=== PATIENT | female | born 1945 | race Caucasian/White ===

== ENCOUNTER → 2020-03-27 | Outpatient (CLI) | payer OTHER, MEDICARE ==
[~2020-03-27] MED LIST: CARVEDILOL3.125 MG PO; CENTRUM ADULTS1 EACH PO; CHILDREN'S ASPI81 M1 PO; EFFIENT10 MG PO; HYDROCHLOROTHIA25 M2 PO; KEFLEX500 M1 PO; LIPITOR20 MG PO; NEURONTIN 300M300 M2 PO; NITROGLYCERIN0.4 MG SUBLING; NITROSTAT0.4 M1 SUBLING; NORCO 5-325 TA1 EACH PO; NOVOLOG FL100 UNIT/M; OMEPRAZOLE40 MG PO; TOPROL XL25 MG PO; UNICOMPLEX M TA1 TA1 PO; VASOTEC10 MG PO; VASOTEC5 MG PO
[2020-03-27 11:10] LABS: HEMATOCRIT 38.2 % (37.0-47.0); HEMOGLOBIN 12.6 gm/dL (12.0-15.0); MCH 27.5 pg (26.0-34.0); MCHC 33.1 g/dL (28.0-37.0); MCV 82.9 fL (80.0-100.0); RBC 4.61 mil/uL (4.20-5.00); RDW 14.9 % (10.5-14.5); URINE BILIRUBIN NEGATIVE (Negative); URINE BLOOD NEGATIVE (Negative); URINE CLARITY CLEAR; URINE COLOR YELLOW; URINE GLUCOSE-RANDOM* NEGATIVE (Negative); URINE KETONES NEGATIVE (Negative); URINE NITRITE-REFLEX NEGATIVE (Negative); URINE PROTEIN (DIPSTICK) NEGATIVE (Negative); URINE UROBILINOGEN 0.2 E.U./dl (0.2-1.0); WBC 6.1 thou/uL (4.0-11.0)
[2020-03-27 11:11] LABS: URINE LEUKOCYTES-REFLEX 1+ (Negative)
[2020-03-27 11:19] LABS: APTT 26.6 Seconds (24.5-32.8); PROTIME 10.2 Seconds (9.3-11.4)
[2020-03-27 11:21] LABS: BACTERIA-REFLEX None Seen /HPF (None Seen); CASTS None Seen /LPF (None Seen); CRYSTALS None Seen /LPF (None Seen); SQUAMOUS None Seen /LPF (0-3); URINE RBC 0-2 Rare /HPF (0-2); URINE WBC-REFLEX 0-5 Rare /HPF (0-5)
[2020-03-27 11:25] LABS: ALBUMIN 4.1 g/dL (3.4-5.0); CALCIUM 9.4 mg/dL (8.5-10.1); CREATININE 0.8 mg/dL (0.6-1.0); POTASSIUM 4.4 mmol/L (3.5-5.1); TOTAL BILIRUBIN 0.3 mg/dL (0.2-1.0)
--- NOTE | 2020-03-27 12:42 | EKG ---
[place] [address] [facility] [place] [address] ELECTROCARDIOGRAM REPORT Name: JAIME CHAPA Room #: [facility].#: [id number] Admission: Attend Phys: Navdeep Becerra MD Discharge: Date of : 49 Report #: [id number] [facility] Test Date: 2020-03-27 Test Time: 11:03:23 Pat Name: JAIME CHAPA Department: Room: Gender: F Human Resources Administrator: MAX : 1945 Requested By: Navdeep Becerra Order Number: [id number] MD: Phillip Alfredo Measurements Intervals [place] Rate: 52 P: 9 AR: 169 QRS: 2 QRSD: 97 T: 10 QT: 526 QTc: 490 Interpretive Statements Sinus rhythm Abnormal R-wave progression, early transition Borderline prolonged QT interval No previous ECG available for comparison Electronically Signed On 03-27-2020 12:42:27 HUMIDIFIER ATTENDANT by Phillip Alfredo [email or web address] <ELECTRONICALLY SIGNED> By: Phillip Alfredo MD, [facility] 03/27/20 1242 1103 1103 Phillip Alfredo MD, FACC /EPI
== END ==
LOC: LAB 10:41
PROVIDERS: ATTEND Surgery Vascular Surgery
DX: Z01.812 Encounter for preprocedural laboratory examination (principal); Z20.822 Contact with and (suspected) exposure to COVID-19

== ENCOUNTER 2020-04-02 06:18 | Inpatient (IN) | payer OTHER, MEDICARE ==
[~2020-04-02] VITALS: Ht 160 cm; Wt 66.2 kg
[2020-04-02 07:18] VITALS: BP 154/81
--- NOTE | 2020-04-02 15:16 | O ---
[facility] [address] OPERATIVE REPORT Name: JAIME CHAPA Room #: 150-1 ADM IN M.R.#: [id number] Admission: 04/02/20 Attend Phys: Navdeep Becerra MD Discharge: Date of : 49 Report #: [id number] THIS REPORT FOR: cc: ROYAL 11,GOGO KAISER 11,GOGO Rivera,Navdeep Escudero MD ~ DATE OF SERVICE: 04/02/2020 PREOPERATIVE DIAGNOSIS: Left carotid artery stenosis. POSTOPERATIVE DIAGNOSIS: Left carotid artery stenosis. OPERATION: Left carotid endarterectomy with patch closure. SURGEON: Navdeep Becerra M.D. HOUSEHOLD CHORES: Kia Bond ANESTHESIA: General. INDICATIONS: The patient is a 74-year-old seen for [facility]. The patient has a 90% left internal carotid stenosis. This has been asymptomatic. FINDINGS AND TECHNIQUE: After general anesthesia was established, an oblique left neck incision was made. Common facial vein was divided. Common internal and external carotid artery and the superior thyroid artery were identified and controlled, 10,000 units of heparin were given. Continuous electroencephalographic monitoring was performed during the operation when the carotid vessels were occluded, no EEG changes were noted. The carotid arteriotomy was made. The endarterectomy was performed without creating a distal flap. Neointima was inspected and all loose debris was removed. Tacking sutures were placed at the transition zone. When the endarterectomy was deemed satisfactory, the arteriotomy was closed with running Prolene and a thin walled pericardial patch. Prior to finishing the closure, the carotid vessels were backbled and the artery was flushed with heparinized saline. Flow was established first through the external, then the internal carotid. Protamine was given to reverse the heparin. The patient had been on dual antiplatelet therapy prior to surgery, however, and there was a prolonged period of bleeding from tiny needle holes that required topical hemostatic technique. An additional unit of platelets was given. [facility] [address] [place] [address] OPERATIVE REPORT Name: JAIME CHAPA Judy Room #: 150-1 [facility].#: [id number] Admission: 04/02/20 Attend Phys: Navdeep Becerra MD Discharge: Date of : 49 Report #: [id number] When the bleeding was finally felt to be satisfactory, the wound was irrigated with antibiotic solution and then a Manas drain was brought out through the bottom of the incision and the wound was closed in layers. The patient was taken to the recovery area in good condition having tolerated the procedure well. All counts reported as correct. <ELECTRONICALLY SIGNED> By: Navdeep Becerra MD 04/02/20 1516 1359 1429 Navdeep Becerra MD /nt
[2020-04-02 15:30] VITALS: BP 110/43
--- NOTE | 2020-04-02 17:29 | NUR ---
1530-RECEIVED PT INTO 248 VIA BED W PACU CREW.PT EXTREMELY SLEEPY-GIVEN PHENERGAN PRIOR TO LEAVING PACU.CARDENE @ 10MG/HR.--VW
--- NOTE | 2020-04-03 06:06 | NUR ---
ASSUMED PT CARE AT 1900. VSS. PT [id number]. PT WAS N/V, ZOFRAN GIVEN N/V RESOLVED. PAIN MANAGED PER MAR ONCE THIS SHIFT. CARDENE TITRATED DOWN TO 2.5 FROM 10MG/HR. PT IS STABLE, NO COMPLAINTS THIS AM. WOULD LIKE TO HAVE BREAKFAST. WILL CONTINUE TO MONITOR
[2020-04-03 06:11] LABS: HEMATOCRIT 27.7 % (37.0-47.0); HEMOGLOBIN 9.3 gm/dL (12.0-15.0); MCH 27.8 pg (26.0-34.0); MCHC 33.5 g/dL (28.0-37.0); MCV 82.9 fL (80.0-100.0); RBC 3.33 mil/uL (4.20-5.00); RDW 15.5 % (10.5-14.5); WBC 14.2 thou/uL (4.0-11.0)
[2020-04-03 06:21] LABS: CALCIUM 8.1 mg/dL (8.5-10.1); CREATININE 0.8 mg/dL (0.6-1.0)
--- NOTE | 2020-04-03 07:21 | NUR ---
ASSUMMED CARE OF THIS PATIENT FROM THE NIGHT NURSE, ARJUN SAM. DR TEMPLETON BY.
[2020-04-03 08:05] VITALS: BP 123/50
[2020-04-03 09:00] VITALS: BP 125/54
[2020-04-03 10:00] VITALS: BP 127/54
[2020-04-03 12:29] VITALS: BP 121/45
[2020-04-03 16:23] VITALS: BP 134/58
--- NOTE | 2020-04-03 16:28 | NUR ---
74-year-old male admitted for Left carotid endarterectomy with patch closure. Patient currently lives at home with spouse Andrew Vasquez at [phone]. Spoke with spouse and introduced role of CM. No anticipated needs as he too has been in touch with the patient and her updates as well. Patient had been Independent with ADL's and per PT has noted no difficulty with ambulation and has a steady gait and plan up ad federico. Anticipated limited needs at discharged now planned per attending for 04-04-. CM will follow for discharge needs.
[2020-04-03 20:00] VITALS: BP 139/52
--- NOTE | 2020-04-03 20:00 | NUR ---
PATIENT IS PROGRESSING TOWARDS OUTCOME GOALS EVIDENT BY, VOIDING WITHOUT DIFFICULTY NOW THAT DANIELLE WAS DC'D. AMBULATING IN THE HALLS AND UP IN THE CHAIR. DENIES PAIN. AWAITING BED ON CCU.
[2020-04-04] VITALS: BP 142/50
[2020-04-04 00:05] LABS: GLYCOHEMOGLOBIN (HGB A1C) 7.4 % (4.8-5.6)
[2020-04-04 00:15] VITALS: BP 142/50
[2020-04-04 04:00] VITALS: BP 133/52
--- NOTE | 2020-04-04 06:30 | NUR ---
Pt progressing toward discharge goals. Voiding without difficulty since catheter removal. Taking po without nausea. Up with stand-by assist only, gait steady. Left neck drsg drainage has not increased, drsg intact, dry. Blood pressure and blood sugars within parameters.
[2020-04-04 07:50] VITALS: BP 133/56
[2020-04-04 08:23] VITALS: BP 133/56
--- NOTE | 2020-04-04 08:55 | NUR ---
0730-YP TO TOILET THEN CHAIR.PT VERY READY TO GO HOME. IN EXCELLENT SPIRITS. AUGUSTIN JACKSON PA, IN.--VW
[2020-04-04 10:35] VITALS: BP 130/56
--- NOTE | 2020-04-05 16:06 | PATH ---
[facility] [address] [place] [address] PATHOLOGY RPT PROCEDURE Name: LIZZ VASQUEZ Judy Room #: 248-P DIS IN M.R.#: [id number] Admission: 04/02/20 Date of : 49 Discharge: 04/04/20 Report #: [id number] Path Case #: [id number] [facility] Accession Number: [id number] . 01 Material submitted: . carotid body - LEFT CAROTID ARTERY PLAQUE. Modifiers: left . 02 Diagnosis: Left carotid artery, endarterectomy: - Calcified atherosclerotic plaque. (EDD:tru; 04/04/2020) MBR 04/04/2020 1635 Local . 02 Electronically signed: . Tom Fong MD, Pathologist NPI- [id number] . 01 Gross description: . The specimen is received in formalin, labeled "Lizz Vasquez, left carotid artery plaque". Received are multiple segments of partially calcified, rubbery material measuring 2.1 x 1.1 x 0.6 cm in aggregate dimensions. The specimen is submitted representatively in cassette A1, following light decalcification. (CAA; 04/03/2020) QAC/QAC 04/03/2020 1536 Local . 02 Pathologist provided ICD-10: I65.22 . 02 CPT . 526272, [id number] Specimen Comment: A courtesy copy of this report has been sent to [phone], [phone] Specimen Comment: [id number] Specimen Comment: Report sent to / DR PAIGE Performed at: [address] [facility], [place], [place] [id number] MD Jamshid Carson MD Phone: [phone] Performed at: [address] [facility] [id number] MD Olga Monsalve MD Phone: [phone]
== END 2020-04-04 10:05 | disposition home or self-care (01) | DRG 39 ==
LOC: TBA 06:18 → ICU 06:18 → PRE 09:19 → 4S 14:24 → TBA 14:24 → ICU 17:28
PROVIDERS: Nurse Practitioner Family; Physician Assistant; ADMIT Surgery Vascular Surgery; ATTEND Surgery Vascular Surgery
PROC: 03CL0ZZ Extirpation of Matter from Left Internal Carotid Artery, Open Approach (ICD-10-PCS; principal; 2020-04-02)
PROC: 03UL0KZ Supplement Left Internal Carotid Artery with Nonautologous Tissue Substitute, Open Approach (ICD-10-PCS; principal; 2020-04-02)
PROC: 03UN0KZ Supplement Left External Carotid Artery with Nonautologous Tissue Substitute, Open Approach (ICD-10-PCS; principal; 2020-04-02)
PROC: 03CN0ZZ Extirpation of Matter from Left External Carotid Artery, Open Approach (ICD-10-PCS; principal; 2020-04-02)
DX: I65.22 Occlusion and stenosis of left carotid artery (principal); E11.42 Type 2 diabetes mellitus with diabetic polyneuropathy; Z96.652 Presence of left artificial knee joint; D72.829 Elevated white blood cell count, unspecified; I10 Essential (primary) hypertension; I25.10 Atherosclerotic heart disease of native coronary artery without angina pectoris; Z95.5 Presence of coronary angioplasty implant and graft; Z92.3 Personal history of irradiation; Z09 Encounter for follow-up examination after completed treatment for conditions other than malignant neoplasm; Z85.3 Personal history of malignant neoplasm of breast; Z90.12 Acquired absence of left breast and nipple; Z90.49 Acquired absence of other specified parts of digestive tract; Z82.49 Family history of ischemic heart disease and other diseases of the circulatory system; Z83.3 Family history of diabetes mellitus; Z88.8 Allergy status to other drugs, medicaments and biological substances; Z80.8 Family history of malignant neoplasm of other organs or systems; Z79.82 Long term (current) use of aspirin; Z79.899 Other long term (current) drug therapy
CPT/HCPCS: 10078; 47375; 50010; 50101; 50386; 50417; 50455; 51301; 51436; 52279; 52287; 54118; 56524; 56526; 56528; 56534; 57254; 62110; 62900; 70005